=== PATIENT | female | born 1940 | race Caucasian/White ===

== ENCOUNTER → 2017-08-14 | Outpatient (CLI) | payer MEDICARE, BC ==
[2017-08-14 10:28] LABS: MCH 30.7 pg (25.0-35.0); MCHC 32.7 g/dL (31.0-37.0); MCV 94.1 fL (80.0-100.0); Mean Platelet Volume 7.8; Platelet Count 192 k/uL (150-450); RBC 4.25 m/uL (3.80-5.40); WBC 4.7 k/uL (3.8-10.6)
[2017-08-14 10:40] LABS: Appearance,Urine Clear (Clear); Bilirubin,Urine Negative (Negative); Blood,Urine Negative (Negative); Color,Urine Yellow; Glucose,Urine (UA) Negative (Negative); Ketones,Urine Negative (Negative); Leukocyte Esterase,Urine Negative (Negative); Nitrite,Urine Negative (Negative); PH, Urine 5.5 (5.0-8.0); Protein,Urine Negative (Negative); Specific Gravity,Urine 1.011 (1.001-1.035); Urobilinogen,Urine <2.0 mg/dL (<2.0)
[2017-08-14 10:45] LABS: ALT 22 U/L (9-52); AST 21 U/L (14-36); Albumin 3.9 g/dL (3.5-5.0); Alkaline Phosphatase 67 U/L (38-126); Anion Gap 9 mmol/L; Blood Urea Nitrogen 16 mg/dL (7-17); Calcium 9.6 mg/dL (8.4-10.2); Carbon Dioxide 27 mmol/L (22-30); Chloride 107 mmol/L (98-107); Glucose 100 mg/dL (74-99); Potassium 4.4 mmol/L (3.5-5.1); Sodium 143 mmol/L (137-145); Total Bilirubin 0.4 mg/dL (0.2-1.3); Total Protein 6.5 g/dL (6.3-8.2)
[2017-08-14 10:54] LABS: INR 1.1 (<1.2); Partial Thromboplastin Time 22.8 sec (22.0-30.0); Prothrombin Time 10.6 sec (9.0-12.0)
== END | disposition home or self-care (01) ==
LOC: LABPAT 09:35
PROVIDERS: ATTEND Orthopaedic Surgery
DX: Z01.818 Encounter for other preprocedural examination (principal); Z01.812 Encounter for preprocedural laboratory examination
CPT/HCPCS: 80053; 81003; 85027; 85610; 85730; 87070; 93005

== ENCOUNTER 2017-08-27 09:55 | Inpatient (IN) | payer MEDICARE, BC ==
[2017-08-19 15:25] VITALS: BMI 34.7
[~2017-08-27 09:55] MED LIST: ACETAMINOPHEN TAB 500 MG TAB PO ONE; DEXAMETHASONE SOD PHOSPHATE 10 MG/ML 1 ML VIAL IV ONE; LIDOCAINE 1% 20 ML VIAL (10MG/ML) FOR IV START INTRADERMA PRN; MELOXICAM 7.5 MG TAB PO ONE; MIDAZOLAM 2 MG/2 ML VIAL IV PRN; MORPHINE SULFATE 2 MG/ML SYRINGE IV PRN; ONDANSETRON 4 MG/2 ML VIAL IVP ONE; ROPIVACAINE 246.25 MG, EPINEPHrine 0.5 MG, KETOROLAC 30 MG, cloNIDine HCL/PF 80 MCG, WA... MISCELLANE ONE; SCOPOLAMINE 1.5MG/72HR PATCH TRANSDERM ONE; TRANEXAMIC ACID 1,000 MG in SODIUM CHLORIDE 0.9% 50 ML IVPB ONE; ceFAZolin IN SWFI 2 GM/20 ML SYRINGE IVP ONE
[2017-08-27] MEDS: LACTATED RINGERS 1,000 ML IV SCH (14:26)
[2017-08-27] MEDS ORDERED: ROPIVACAINE 5 MG/ML 30 ML VIAL ONE (14:54)
[2017-08-27] MEDS ORDERED: fentaNYL (PF) 50 MCG/ML 2 ML AMP ONE (14:54)
[2017-08-27] MEDS ORDERED: PROPOFOL 10 MG/ML 20 ML VIAL IV ONE (14:54)
[2017-08-27] MEDS ORDERED: PHENYLEPHRINE-0.9% NACL SYG 1 MG/10 ML SYRINGE ONE (14:54)
[2017-08-27] MEDS ORDERED: SUCCINYLCHOLINE CHLORIDE 100 MG/5 ML SYR IV ONE (14:54)
[2017-08-27] MEDS ORDERED: TRANEXAMIC ACID 1,000 MG/10 ML VIAL ONE (14:54)
[2017-08-27] MEDS ORDERED: ceFAZolin 3,000 MG in SODIUM CHLORIDE 0.9% IRRIGATIO 3,000 ML IRRIGATION ONE (14:54)
[2017-08-27] MEDS ORDERED: ePHEDrine SULFATE/0.9% NACL/PF 50 MG/5 ML SYRINGE IV ONE (14:54)
[2017-08-27] MEDS ORDERED: LIDOCAINE 1% INJ 10MG/ML (20 ML MDV) ONE (14:54)
[2017-08-27] MEDS ORDERED: SODIUM CHLORIDE 0.9% 100 ML BAG ONE (14:54)
[2017-08-27] MEDS ORDERED: LIDOCAINE 2%-EPI 1:100,000 20 ML VIAL ONE (14:54)
--- NOTE | 2017-08-27 15:15 | P.ONQ ---
Anesthesiology Proc Note - PNB - Peripheral Nerve Block Performed Right Interscalene Indication: Acute Post-Operative Pain, Requested by physician (Dr Rex Oconnell ) Preparation: Sterile Prep Position: Supine Catheter: None Needle Types: Other (see comment) (Wagner) Needle Size: 50mm (2") Needle Gauge: 20, 21 Technique: Ultrasound (0.5% Ropivacaine 12cc, 2.0% Lidocaine 12cc with 1:100, 000 epi) Blood Aspirated: No Pain Paresthesia on Injection Noted: No Resistance on Injection: Normal Events: Uneventful and Well Tolerated
[2017-08-27] MEDS ORDERED: LACTATED RINGERS 1,000 ML IV ONE (16:22)
--- NOTE | 2017-08-27 16:22 | P.OP ---
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 Biomet comprehensive reverse shoulder system, humeral bearing, 44 mm x 36 mm, +3 Biomet comprehensive reverse shoulder system, humeral tray with locking ring, 44 mm, standard Biomet comprehensive reverse shoulder, Glenosphere baseplate, 25 mm Biomet comprehensive reverse shoulder, central screw, 6.5 mm x 20 mm Biomet comprehensive reverse shoulder, fixed locking screw, 4.75 x 25 mm, 15 mm , 15 mm, 25 mm. Biomet comprehensive reverse shoulder glenosphere, 36 mm, standard All components were press-fit. Articulation is metal on polyethylene. Anesthesia: EDGAR Surgeon: Rex Oconnell Java Mobile Developer #1: Kamilah Burkett Estimated Blood Loss (ml): 50 Pathology: other (Bone and cartilage) Condition: stable Disposition: PACU Indications for Procedure: This is a patient that presented to my office with severe pain in the shoulder. X-rays demonstrated severe osteoarthritis of the glenohumeral joint of her shoulder. After failure of conservative treatment, we discussed the surgical and nonsurgical treatment options at length. The patient wishes to proceed with a reverse total shoulder arthroplasty. Patient is aware of the complications of the procedure which include but are not limited to infection, hardware failure, persistent pain, dislocation, and nerve injury. Informed consent was obtained. Operative Findings: The operative findings are consistent with severe osteoarthritis the right shoulder with a chronic rotator cuff tear Description of Procedure: The patient was seen in the preoperative area, consent was reviewed, and operative site was marked with a skin marker. Patient was then brought to the operating room and given preoperative antibiotics intravenously. Patient was also given 1 g of Tranexamic acid intravenously. A general anesthetic was administered by the anesthesia department. The patient was then placed in a beachchair position with the bony prominences well-padded and the head secured. The shoulder was then prepped and draped in the usual sterile fashion. A universal timeout was then performed, which confirmed the patient's name, surgical site, ALLERGIES, and consent. A standard deltopectoral approach was performed. The skin and subcutaneous tissue was sharply dissected down to the deltoid fascia. The cephalic vein was then identified and retracted medially. The deltopectoral interval was then utilized to expose the subscapularis tendon. A retractor was then placed under the coracobrachialis tendon retracted medially, and the deltoid. The axillary nerve is palpated and protected throughout the procedure. The subscapularis tendon was then released and retracted medially. The humeral head was then exposed easily. The rotator cuff tendon was found to be completely torn and retracted. After the humeral head was exposed, osteophytes were removed with a Ronguer. Next the humeral stem was prepared. A starter reamer was then placed through the humeral head along the axis of the humeral shaft just lateral to the articular surface and just medial to the rotator cuff attachment. Sequential reaming was performed to the appropriate size reamer was inserted to the # between the 3 and 4 on the reamer. Next the intramedullary resection guide was placed on the reamer shaft. It was placed to the appropriate resection depth and angle of 30 of retroversion. Resection guide block was then secured with Steinmann pins. The proximal humerus was then resected. The block was then removed and the humerus was then broached sequentially to the same size as the reamer. After the broaches fully seated, the broach handle was removed and a broach cover was placed protect the humerus while the glenoid was prepared. Next attention was directed to the glenoid. The appropriate retractors were placed around the glenoid and any remaining soft tissues was removed from around the glenoid. After the glenoid was adequately exposed, the threaded glenoid guide was placed onto the glenoid and a 3.2 mm Steinmann pin was inserted in the glenoid at the desired angle and position, ensuring the pin engaged medial cortical wall. Next, the cannulated baseplate reamer was placed over the top of the Steinmann pin. The glenoid was then reamed to the appropriate depth. The glenoid reamer was then removed, leaving the Steinmann pin. The glenoid Syed plate implant was placed on the end of the cannulated baseplate impactor. The baseplate was then impacted fully into the glenoid. Next the 6.5 mm central screw was then placed which afforded excellent fixation. The 4 peripheral locking screws were then drilled measured and placed. Next the appropriate glenosphere was opened and impacted into the glenoid baseplate. Attention was then redirected to the humerus. Next a trial humeral tray was placed in the shoulder was reduced. Shoulder was taken through a full range of motion and found to be stable. The shoulder was then gently dislocated, and the trial humerus and humeral tray were removed. The final humeral stem was impacted in the final humeral tray was impacted as well. Shoulder was then relocated. Again the shoulder was taken through a range of motion and found to have no instability. Shoulder was then irrigated with pulsatile lavage. The shoulder was then irrigated with Irrisept solution. The soft tissues were then injected with a ropivacaine solution, which consisted of 246.25 mg of ropivacaine, 0.5 mg of epinephrine, 30 mg of Toradol, 80 g of clonidine, and 48.45 mL of sterile water , for a total of 100 mL of fluid injected. A second dose of 1 g of Tranexamic acid was given. The subscapularis was then repaired with #1 Vicryl. The deltopectoral interval was then closed with #1 Vicryl as well. The subcutaneous tissues were closed with 2-0 Vicryl then Dermabond was placed on the skin. A sterile dressing was then applied, the patient was transported to the recovery room in an arm sling in stable condition. The assistant boiler operator LUANN Ball was required due the complexity of surgery and the need for a skilled operating room surgical technologist.
[2017-08-27] MEDS ORDERED: HYDROcodone/APAP 5-325MG 1 EACH TAB PO PRN (16:35)
[2017-08-27] MEDS ORDERED: hydrOXYzine PAMOATE 25 MG CAP PO PRN (16:35)
[2017-08-27] MEDS ORDERED: MORPHINE SULFATE/PF 10MG/10ML VL IVP PRN ×3 (16:35)
[2017-08-27] MEDS ORDERED: ONDANSETRON 4 MG/2 ML VIAL IVP PRN (16:35)
[2017-08-27] MEDS ORDERED: SENNOSIDES-DOCUSATE SODIUM 1 EACH TAB PO PRN (16:35)
--- NOTE | 2017-08-27 17:08 | XR ---
EXAMINATION TYPE: XR shoulder limited RT DATE OF EXAM: 08/27/2017 COMPARISON: NONE HISTORY: Postop right shoulder surgery TECHNIQUE: Single view FINDINGS: There is a right shoulder prosthesis. Components appear in anatomic position. IMPRESSION: Right shoulder prosthesis. No complicating process seen.
[2017-08-27] MEDS ORDERED: ONDANSETRON 4 MG/2 ML VIAL IVP ONE (17:09)
[2017-08-27] MEDS: SODIUM CHLORIDE 0.9% 1,000 ML IV SCH (19:09)
[2017-08-28] MEDS: ceFAZolin IN SWFI 2 GM/20 ML SYRINGE IVP SCH ×2 (01:11→08:06)
[2017-08-28 01:26] VITALS: RESP 16
[2017-08-28] MEDS: LACTATED RINGERS 1,000 ML IV SCH (05:25)
[2017-08-28 07:32] VITALS: BP 140/74; PULSE 109; TEMP 98.3
[2017-08-28] MEDS: HYDROcodone/APAP 5-325MG 1 EACH TAB PO PRN ×2 (07:40→14:52)
--- NOTE | 2017-08-28 09:15 | P.DS ---
Providers Date of admission: 08/27/17 13:56 Expected date of discharge: 08/28/17 Attending physician: Rex Oconnell Consults: 08/27/17 16:35 Consult Physician Routine Consulting Provider: Sheeba Mary Consult Reason/Comments: medical management Do you want consulting provider notified?: Yes Primary care physician: Beth Hook - Discharge Diagnosis(es) (1) Primary osteoarthritis, right shoulder Current Visit: Yes Status: Acute (2) S/p reverse total shoulder arthroplasty Current Visit: Yes Status: Acute Hospital Course: This is a 77-year-old female with known history of degenerative arthritis of the right shoulder and chronic rotator cuff tear. The patient presents for evaluation. After discussion and consideration patient elects to proceed with reverse total shoulder arthroplasty. The patient is seen preoperatively by Dr. Oconnell and medically cleared for surgery by their primary care physician. Patient is admitted to [facility] on 08/27/2017 for reverse total shoulder arthroplasty. The procedures performed without complication or sequelae. The patient is doing well postoperatively. Labs and vital signs are stable on day of discharge. On day of discharge patient's shoulder incision is healing well. There is minimal erythema. There is no drainage noted at this time. There is minimal soft tissue swelling to the shoulder. Patient has full hand and wrist motion without difficulty or pain. Sensation intact, there is some diminished sensation to the 4th and 5th digits reported by the patient. Patient can still sense light touch and pressure in the 4th and 5th digits. Neurovascular status to the right upper extremity is intact. Patient is discharged home in good condition. Please see med rec for accurate list of home medications. Plan - Discharge Summary Discharge Rx Participant: Yes New Discharge Prescriptions: New HYDROcodone/APAP 5-325MG [[place] 5-325] 1 - 2 tab PO Q4-6H PRN #90 tab PRN Reason: Pain Sennosides [Senokot] 1 tab PO BID #60 tablet No Action Simvastatin [Zocor] 40 mg PO AC-LUNCH Multivitamins, Thera [Multivitamin (formulary)] 1 tab PO DAILY Donepezil [Aricept] 10 mg PO HS Omeprazole [PriLOSEC] 20 mg PO AC-BRKFST Nitroglycerin Sl Tabs [Nitrostat] 0.4 mg SUBLINGUAL Q5M PRN PRN Reason: Chest Pain Aspirin [Adult Low Dose Aspirin EC] 81 mg PO BID Glucosamine Sulfate 500 mg PO DAILY Stool Softner 2 tab PO BID Meloxicam [Mobic] 7.5 mg PO BID Oxybutynin Chloride [Ditropan] 5 mg PO BID Losartan Potassium 50 mg PO DAILY Atenolol [Tenormin] 25 mg PO HS Calcium Carbonate/Vitamin D3 [Calcium 600-Vit D3 200 Tablet] 1 tab PO DAILY Discharge Medication List Donepezil [Aricept] 10 mg PO HS 03/01/14 [History] Multivitamins, Thera [Multivitamin (formulary)] 1 tab PO DAILY 03/01/14 [History ] Omeprazole [PriLOSEC] 20 mg PO AC-BRKFST 03/01/14 [History] Simvastatin [Zocor] 40 mg PO AC-LUNCH 03/01/14 [History] Aspirin [Adult Low Dose Aspirin EC] 81 mg PO BID 08/19/17 [History] Nitroglycerin Sl Tabs [Nitrostat] 0.4 mg SUBLINGUAL Q5M PRN 08/19/17 [History] Atenolol [Tenormin] 25 mg PO HS 08/21/17 [History] Glucosamine Sulfate 500 mg PO DAILY 08/21/17 [History] Losartan Potassium 50 mg PO DAILY 08/21/17 [History] Meloxicam [Mobic] 7.5 mg PO BID 08/21/17 [History] Oxybutynin Chloride [Ditropan] 5 mg PO BID 08/21/17 [History] Stool Softner 2 tab PO BID 08/21/17 [History] Calcium Carbonate/Vitamin D3 [Calcium 600-Vit D3 200 Tablet] 1 tab PO DAILY [History] HYDROcodone/APAP 5-325MG [[place] 5-325] 1 - 2 tab PO Q4-6H PRN #90 tab 08/28/17 [ Rx] Sennosides [Senokot] 1 tab PO BID #60 tablet 08/28/17 [Rx] Follow up Appointment(s)/Referral(s): Rex Oconnell DO [Doctor of Osteopathic Medicine] - 2 Weeks Activity/Diet/Wound Care/Special Instructions: Leave dressing in place for 10-14 days. May shower with dressing on. Range of motion as tolerated to the right upper extremity. Maintain sling for comfort. Please take right arm out of sling several times throughout the day to work on range of motion of the elbow. Please follow-up with [facility] in 2 weeks. Please call with any questions or concerns, [phone]. Discharge Disposition: HOME WITH HOME HEALTH SERVICES
[2017-08-28] MEDS: SODIUM CHLORIDE 0.9% 1,000 ML IV SCH (09:20)
[2017-08-28] MEDS ORDERED: HYDROmorphone 2 MG TAB PO PRN ×3 (13:28→13:29)
--- NOTE | 2017-08-28 14:34 | P.CONS ---
History of Present Illness - Reason for Consult Medical clearance for discharge - History of Present Illness Patient's x-ray underwent right shoulder arthroplasty elective. Does have history of hypertension. Her pain is well-controlled no overnight events. Patient does have history of hypertension gases patient reflux disease patient the denied any symptoms of chest pain nausea vomiting. Patient is clinically stable no significant abnormal physical exam findings patient is okay to be discharged from medical perspective does not have any labs available patient is bit anxious to go home because of which she is bit tachycardic Review of Systems REVIEW OF SYSTEMS: CONSTITUTIONAL: No fever, no malaise, no fatigue. HEENT: No recent visual problems or hearing problems. Denied any sore throat. CARDIOVASCULAR: No chest pain, orthopnea, PND, no palpitations, no syncope. PULMONARY: No shortness of breath, no cough, no hemoptysis. GASTROINTESTINAL: No diarrhea, no nausea, no vomiting, no abdominal pain. Normoactive bowel sounds. NEUROLOGICAL: No headaches, no weakness, no numbness. HEMATOLOGICAL: Denies any bleeding or petechiae. GENITOURINARY: Denies any burning micturition, frequency, or urgency. MUSCULOSKELETAL/RHEUMATOLOGICAL: Denies any joint pain, swelling, or any muscle pain. ENDOCRINE: Denies any polyuria or polydipsia. The rest of the 14-point review of systems is negative. Past Medical History Past Medical History: Cancer, Chest Pain / Angina, Dementia, GERD/Reflux, Hyperlipidemia, Osteoarthritis (OA) Additional Past Medical History / Comment(s): hx. uterine cancer History of Any Multi-Drug Resistant Organisms: None Reported Past Surgical History: Hysterectomy, Joint Replacement, Orthopedic Surgery Additional Past Surgical History / Comment(s): left and right knee replaced, cataract surg., bunion surg. Past Anesthesia/Blood Transfusion Reactions: No Reported Reaction Past Psychological History: Anxiety Smoking Status: Never smoker Past Alcohol Use History: None Reported Past Drug Use History: None Reported - Past Family History Father Family Medical History: Cancer Additional Family Medical History / Comment(s): brain cancer Mother Family Medical History: Cancer Additional Family Medical History / Comment(s): colon cancer Brother(s) Family Medical History: Cancer Additional Family Medical History / Comment(s): breast cancer Medications and Allergies Home Medications Medication Instructions Recorded Confirmed Type Donepezil [Aricept] 10 mg PO HS 03/01/14 08/27/17 History Multivitamins, Thera [Multivitamin 1 tab PO DAILY 03/01/14 08/27/17 History (formulary)] Omeprazole [PriLOSEC] 20 mg PO AC-BRKFST 03/01/14 08/27/17 History Simvastatin [Zocor] 40 mg PO AC-LUNCH 03/01/14 08/27/17 History Aspirin [Adult Low Dose Aspirin EC] 81 mg PO BID 08/19/17 08/27/17 History Nitroglycerin Sl Tabs [Nitrostat] 0.4 mg SUBLINGUAL Q5M PRN 08/19/17 08/27/17 History Atenolol [Tenormin] 25 mg PO HS 08/21/17 08/27/17 History Glucosamine Sulfate 500 mg PO DAILY 08/21/17 08/27/17 History Losartan Potassium 50 mg PO DAILY 08/21/17 08/27/17 History Meloxicam [Mobic] 7.5 mg PO BID 08/21/17 08/27/17 History Oxybutynin Chloride [Ditropan] 5 mg PO BID 08/21/17 08/27/17 History Stool Softner 2 tab PO BID 08/21/17 08/27/17 History Calcium Carbonate/Vitamin D3 1 tab PO DAILY 08/23/17 08/27/17 History [Calcium 600-Vit D3 200 Tablet] HYDROcodone/APAP 5-325MG [[place] 1 - 2 tab PO Q4-6H PRN #90 tab 08/28/17 Rx 5-325] Sennosides [Senokot] 1 tab PO BID #60 tablet 08/28/17 Rx Allergies Allergy/AdvReac Type Severity Reaction Status Date / Time No Known Allergies Allergy Verified 08/27/17 17:16 Physical Exam Vitals: Vital Signs Temp Pulse Resp BP Pulse Ox 08/28/17 07:25 98.3 F 109 H 16 140/74 95 08/28/17 00:07 97.3 F L 105 H 16 143/79 94 L 08/28/17 00:00 18 08/27/17 21:00 18 08/27/17 20:00 98.6 F 90 18 130/75 93 L 08/27/17 19:45 95 124/78 08/27/17 19:30 100 139/87 03/27/18 19:15 84 119/73 08/27/17 19:00 87 110/68 08/27/17 18:45 85 110/68 08/27/17 18:30 84 129/68 08/27/17 18:15 77 133/77 08/27/17 18:00 97.4 F L 92 18 119/74 93 L 08/27/17 17:30 97 18 139/81 99 08/27/17 17:00 83 16 134/62 94 L 08/27/17 16:45 91 16 160/71 93 L 08/27/17 16:35 97.7 F 103 H 16 172/92 97 Intake and Output 08/27/17 08/28/17 08/28/17 22:59 06:59 14:59 Intake Total 50 660 520 Output Total 20 Balance 30 660 520 Intake: IV 50 Intake, IV Titration 400 520 Amount Sodium Chloride 0.9% 1, 400 520 000 ml @ 65 mls/hr IV . [id number] [facility] Rx#:[id number] Oral 260 Output: Estimated Blood Loss 20 Other: Voiding Method Toilet Toilet Toilet # Voids 1 2 Weight 86.183 kg PHYSICAL EXAMINATION: GENERAL: The patient is alert and oriented x3, not in any acute distress. Well developed, well nourished. HEENT: Pupils are round and equally reacting to light. EOMI. No scleral icterus. No conjunctival pallor. Normocephalic, atraumatic. No pharyngeal erythema. No thyromegaly. CARDIOVASCULAR: S1 and S2 present. No murmurs, rubs, or gallops. PULMONARY: Chest is clear to auscultation, no wheezing or crackles. ABDOMEN: Soft, nontender, nondistended, normoactive bowel sounds. No palpable organomegaly. MUSCULOSKELETAL: No joint swelling or deformity. EXTREMITIES: No cyanosis, clubbing, or pedal edema. NEUROLOGICAL: Gross neurological examination did not reveal any focal deficits. SKIN: No rashes. Assessment and Plan Plan: -Postoperative day one right shoulder arthroplasty: Pain management and DVT prophylaxis per primary service. -Hypertension -Gastric esophageal reflux disease -Mild dementia etiology is unknown No further recommendations from his perspective patient can resume all her home medications without any changes and okay to discharge from medicine perspective
== END 2017-08-28 15:30 | disposition home health service (06) | DRG 483 ==
LOC: 2ORMAIN 13:56 → 3SUR 17:26
PROVIDERS: ADMIT Orthopaedic Surgery; ATTEND Orthopaedic Surgery
PROC: 0RRJ00Z Replacement of Right Shoulder Joint with Reverse Ball and Socket Synthetic Substitute, Open Approach (ICD-10-PCS; principal; 2017-08-27 16:20)
DX: M19.011 Primary osteoarthritis, right shoulder (principal); F03.90 Unspecified dementia, unspecified severity, without behavioral disturbance, psychotic disturbance, mood disturbance, and anxiety; E78.5 Hyperlipidemia, unspecified; I10 Essential (primary) hypertension; Z96.653 Presence of artificial knee joint, bilateral; K21.9 Gastro-esophageal reflux disease without esophagitis; M75.101 Unspecified rotator cuff tear or rupture of right shoulder, not specified as traumatic; Z85.42 Personal history of malignant neoplasm of other parts of uterus; Z79.82 Long term (current) use of aspirin; Z79.1 Long term (current) use of non-steroidal anti-inflammatories (NSAID); Z79.899 Other long term (current) drug therapy; Z82.49 Family history of ischemic heart disease and other diseases of the circulatory system; Z80.0 Family history of malignant neoplasm of digestive organs; Z80.3 Family history of malignant neoplasm of breast; Z80.8 Family history of malignant neoplasm of other organs or systems; Z90.710 Acquired absence of both cervix and uterus
CPT/HCPCS: 88305; 88311

== ENCOUNTER 2018-06-02 22:52 | Observation (INO) | payer MEDICARE, BC ==
--- NOTE | 2018-06-03 00:41 | ED ---
Chest Pain HPI - General Chief Complaint: Chest Pain Stated Complaint: chest pain Time Seen by Provider: 06/02/18 22:52 Source: patient, RN/MD, EMS, RN notes reviewed, old records reviewed Mode of arrival: EMS - History of Present Illness Initial Comments: This is a 77-year-old female who was transferred from [facility] for evaluation of chest pain in his been persistent today. She had midsternal chest pain or radiated to her left shoulder and into her back and left side. This started around 5 PM this after her noon. She apparently initially thought she was feeling anxious and the pain got worse she rated 9 out of 10. It improves to 7 out of 10 with oxygen. She did have associated shortness of breath with it some dizziness this is unlike any previous episode she's had. Is a family history of heart disease she is a nonsmoker. No nausea vomiting. She did take 2 subungual nitroglycerin at home and report is a prescription is old. She also took baby aspirin today. She was evaluated in the emergency department at [facility] she is found have a mildly elevated d-dimer CAT scan was negative for PE. Her initial troponin was negative at she had persistent pain and does require inpatient monitoring. She was transferred here for further evaluation. MD Complaint: chest pain - Related Data Home Medications Medication Instructions Recorded Confirmed Donepezil [Aricept] 10 mg PO HS 03/01/14 06/02/18 Multivitamins, Thera [Multivitamin 1 tab PO DAILY 03/01/14 06/02/18 (formulary)] Omeprazole [PriLOSEC] 20 mg PO AC-BRKFST 03/01/14 06/02/18 Simvastatin [Zocor] 40 mg PO AC-LUNCH 03/01/14 06/02/18 Aspirin [Adult Low Dose Aspirin EC] 81 mg PO BID 08/19/17 06/02/18 Nitroglycerin Sl Tabs [Nitrostat] 0.4 mg SUBLINGUAL Q5M PRN 08/19/17 06/02/18 Atenolol [Tenormin] 25 mg PO HS 08/21/17 06/02/18 Glucosamine Sulfate 500 mg PO DAILY 08/21/17 06/02/18 Meloxicam [Mobic] 7.5 mg PO BID 08/21/17 06/02/18 Calcium Carbonate/Vitamin D3 1 tab PO DAILY 08/23/17 06/02/18 [Calcium 600-Vit D3 200 Tablet] Allergies Allergy/AdvReac Type Severity Reaction Status Date / Time No Known Allergies Allergy Verified 06/02/18 23:26 Review of Systems ROS Statement: Those systems with pertinent positive or pertinent negative responses have been documented in the HPI. ROS Other: All systems not noted in ROS Statement are negative. EKG Findings - EKG Results: EKG: interpreted by FATIMAH, sinus rhythm (Sinus rhythm of 84. Interval 146 QRS duration 94 QT since QTC/[address] configuration this is compared with a [facility] EKG dated 08/14/17 and 2 EKG submitted from [place]. The repeat at this emergency department shows less prominent ST change.) Past Medical History Past Medical History: Cancer, Chest Pain / Angina, Dementia, GERD/Reflux, Hyperlipidemia, Osteoarthritis (OA) Additional Past Medical History / Comment(s): hx. uterine cancer History of Any Multi-Drug Resistant Organisms: None Reported Past Surgical History: Hysterectomy, Joint Replacement, Orthopedic Surgery Additional Past Surgical History / Comment(s): left and right knee replaced, cataract surg., bunion surg. Past Anesthesia/Blood Transfusion Reactions: No Reported Reaction Past Psychological History: Anxiety Smoking Status: Never smoker Past Alcohol Use History: None Reported Past Drug Use History: None Reported - Past Family History Mother Family Medical History: Cancer Additional Family Medical History / Comment(s): COLON CA Brother(s) Family Medical History: Cancer Additional Family Medical History / Comment(s): PANCREATIC CANCER Father Family Medical History: Cancer Additional Family Medical History / Comment(s): brain cancer General Exam - General Exam Comments Initial Comments: This is a well-developed well-nourished awake alert oriented 3 female General appearance: alert, in no apparent distress Head exam: Present: atraumatic, normocephalic, normal inspection Eye exam: Present: normal appearance, PERRL, EOMI. Absent: scleral icterus, conjunctival injection, periorbital swelling ENT exam: Present: normal exam, mucous membranes moist Neck exam: Present: normal inspection. Absent: tenderness, meningismus, lymphadenopathy Respiratory exam: Present: normal lung sounds bilaterally. Absent: respiratory distress, wheezes, rales, rhonchi, stridor Cardiovascular Exam: Present: regular rate, normal rhythm, normal heart sounds. Absent: systolic murmur, diastolic murmur, rubs, gallop, clicks GI/Abdominal exam: Present: soft, normal bowel sounds. Absent: distended, tenderness, guarding, rebound, rigid Extremities exam: Present: normal inspection, full ROM, normal capillary refill. Absent: tenderness, pedal edema, joint swelling, calf tenderness Back exam: Present: normal inspection Neurological exam: Present: alert, oriented X3, CN II-XII intact Psychiatric exam: Present: normal affect, normal mood Skin exam: Present: warm, dry, intact, normal color. Absent: rash Course Vital Signs 06/02/18 06/02/18 22:58 23:42 Temperature 98.6 F Pulse Rate 86 Respiratory 16 18 Rate Blood Pressure 126/75 O2 Sat by Pulse 96 Oximetry - Reevaluation(s) Reevaluation #1: 06/03/18 00:41 I was called back into the room by family shortly after my initial evaluation they stated she had a "spell" where she became somewhat incoherent briefly this lasted for a brief period time she is back to normal. No arrhythmias noted at that time. She denies any other complaints at this moment. Chest Pain MDM - MDM I did review the charting materials from [facility]. I did discuss the findings with the patient family members. Patient be admitted to Dr. Barrett's service. Radiology will be consulted. Patient is a continue with Nitropaste and heparin. Disposition Clinical Impression: Unstable angina pectoris, Chest pain Disposition: ADMITTED IP TO THIS HOSP Condition: Stable Referrals: Beth Hook MD [Primary Care Provider] - 1-2 days
[2018-06-03 00:54] LABS: Creatine Kinase 71 U/L (30-135)
[2018-06-03] MEDS ORDERED: NITROGLYCERIN SL TABS 0.4 MG TAB SUBLINGUAL PRN (01:02)
[2018-06-03 01:08] LABS: Creatine Kinase MB 0.8 ng/mL (0.0-2.4); Troponin I <0.012 ng/mL (0.000-0.034)
[2018-06-03] MEDS ORDERED: HEPARIN SOD,PORK IN 0.45% NACL 25,000 UNIT in 0.45% NACL 1 250ML.BAG IV SCH (01:15)
[2018-06-03] MEDS ORDERED: HEPARIN SODIUM,PORCINE 5,000 UNIT/ML 1 ML VIAL IV PRN (01:29)
[2018-06-03] MEDS: NITROGLYCERIN OINT 1 INCH/GM PACKET TOPICAL SCH ×2 (05:34→11:30)
[2018-06-03 07:58] LABS: Creatine Kinase 83 U/L (30-135)
[2018-06-03 08:08] LABS: Creatine Kinase MB 0.8 ng/mL (0.0-2.4); Troponin I <0.012 ng/mL (0.000-0.034)
[2018-06-03] MEDS ORDERED: NON-FORMULARY DRUG (Glucosamine Sulfate 500 MG) PO SCH (09:00)
[2018-06-03] MEDS: PANTOPRAZOLE 40 MG TABLET PO SCH (09:05)
[2018-06-03] MEDS: CALCIUM CARB-VIT D 500MG-200UN 1 EACH TAB PO SCH (09:05)
[2018-06-03] MEDS: MELOXICAM 7.5 MG TAB PO SCH (09:08)
[2018-06-03 11:04] LABS: Creatine Kinase 72 U/L (30-135)
[2018-06-03 11:17] LABS: Creatine Kinase MB 0.7 ng/mL (0.0-2.4); Troponin I <0.012 ng/mL (0.000-0.034)
[2018-06-03] MEDS: ATORVASTATIN 20 MG TAB PO SCH (11:30)
[2018-06-03] MEDS: MULTIVITAMINS, THERA 1 EACH TAB PO SCH (11:31)
--- NOTE | 2018-06-03 12:26 | P.CRDCN ---
History of Present Illness Consult reason: chest pain History of present illness: This is Dr. Camarillo dictating a consult on this patient The patient was interviewed and examined by me IMPRESSION / ASSESSMENT: Chest discomfort radiating up to the neck with normal cardiac enzymes Back discomfort No abdominal discomfort No evidence for pulmonary embolism and no evidence for any aortic dissection or acute pathology based upon CT report from [facility] PLAN: DC nitroglycerin DC heparin If she has chest discomfort then it will lead ECG stat, discussed with nurse and family 2-D echo and Doppler study tomorrow Dobutamine stress echo tomorrow HPI 71-year-old female transferred from [facility] for persistent chest discomfort midsternal radiating to the left shoulder into her back and left side Apparently at [facility] she had an elevated d-dimer, computed tomography scan negative for pulmonary embolism initial cardiac enzyme normal ROS: No fever chills or rigors, no cough, phlegm or expectoration, no nausea, vomiting or diarrhea, no hematuria, dysuria, no musculoskeletal complaints, no strokes or seizures, no skin lesions. EXAMINATION: On examination blood pressure 126/75 mmHg 103/67 mmHg pulse rate in the 60s to 80s, afebrile 97.6F Abdomen is soft nontender Extremities warm no edema Breath sounds are clear no rhonchi no crackles Heart sounds are soft and normal S1 normal S2 REVIEW OF LABS, ECG & MEDICAL DATA ECG shows sinus rhythm nonspecific ST segment abnormality possible 0.[address] depression V5 and V6 normal heart rates 84 beats a minute she normally takes simvastatin and aspirin atenolol at home Initial blood pressure 126/75 mmHg Here in the hospital 2 more cardiac enzymes are normal Past Medical History Past Medical History: Cancer, Chest Pain / Angina, Dementia, GERD/Reflux, Hyperlipidemia, Osteoarthritis (OA) Additional Past Medical History / Comment(s): hx. uterine cancer History of Any Multi-Drug Resistant Organisms: None Reported Past Surgical History: Hysterectomy, Joint Replacement, Orthopedic Surgery Additional Past Surgical History / Comment(s): left and right knee replaced, cataract surg., bunion surg. Past Anesthesia/Blood Transfusion Reactions: No Reported Reaction Past Psychological History: Anxiety Smoking Status: Never smoker Past Alcohol Use History: None Reported Past Drug Use History: None Reported - Past Family History Mother Family Medical History: Cancer Additional Family Medical History / Comment(s): COLON CA Brother(s) Family Medical History: Cancer Additional Family Medical History / Comment(s): PANCREATIC CANCER Father Family Medical History: Cancer Additional Family Medical History / Comment(s): brain cancer Medications and Allergies Home Medications Medication Instructions Recorded Confirmed Type Donepezil [Aricept] 10 mg PO HS 03/01/14 06/02/18 History Multivitamins, Thera [Multivitamin 1 tab PO DAILY 03/01/14 06/02/18 History (formulary)] Omeprazole [PriLOSEC] 20 mg PO AC-BRKFST 03/01/14 06/02/18 History Simvastatin [Zocor] 40 mg PO HS 03/01/14 06/03/18 History Aspirin [Adult Low Dose Aspirin EC] 81 mg PO BID 08/19/17 06/02/18 History Nitroglycerin Sl Tabs [Nitrostat] 0.4 mg SUBLINGUAL Q5M PRN 08/19/17 06/02/18 History Atenolol [Tenormin] 25 mg PO HS 08/21/17 06/02/18 History Glucosamine Sulfate 500 mg PO DAILY 08/21/17 06/02/18 History Meloxicam [Mobic] 7.5 mg PO BID 08/21/17 06/02/18 History Calcium Carbonate/Vitamin D3 1 tab PO DAILY 08/23/17 06/02/18 History [Calcium 600-Vit D3 200 Tablet] Allergies Allergy/AdvReac Type Severity Reaction Status Date / Time No Known Allergies Allergy Verified 06/02/18 23:26 Physical Exam Vitals: Vital Signs Temp Pulse Pulse Resp BP BP Pulse Ox 06/03/18 03:07 97.6 F 66 18 103/67 2 L 06/03/18 02:57 18 06/03/18 01:17 18 06/02/18 23:42 86 18 126/75 96 06/02/18 22:58 98.6 F 16 Intake and Output 06/02/18 06/03/18 06/03/18 22:59 06:59 14:59 Other: Voiding Method Toilet # Voids 2 Weight 87.09 kg Results Cardiac Enzymes 06/03/18 06/03/18 Range/Units 00:20 06:51 CK-MB (CK-2) 0.8 0.8 (0.0-2.4) ng/mL Troponin I <0.012 <0.012 (0.000-0.034) ng/mL Current Medications Generic Name Dose Route Start Last Admin Trade Name Freq PRN Reason Stop Dose Admin Aspirin 325 mg 06/04/18 09:00 Aspirin PO DAILY [facility] Atenolol 25 mg 06/03/18 21:00 Tenormin PO HS [facility] Atorvastatin Calcium 20 mg 06/03/18 12:30 Lipitor PO AC-LUNCH [facility] Calcium Carbonate 1 each 06/03/18 09:00 Oscal 500+D PO DAILY [facility] Donepezil HCl 10 mg 06/03/18 21:00 Aricept PO HS [facility] Heparin Sodium (Porcine) 0 unit 06/03/18 01:29 Heparin IV PER PROTOCOL PRN Low PTT Protocol Heparin Sodium/Sodium Chloride 250 mls @ 9.57 mls/hr 06/03/18 01:15 06/03/18 03:27 25,000 unit/ Sodium Chloride IV 11 units/kg/hr .Q24H ALESHA 9.57 mls/hr Administration Protocol 11 UNITS/KG/HR Meloxicam 7.5 mg 06/03/18 09:00 Mobic PO DAILY [facility] Multivitamins 1 each 06/03/18 12:00 Theragran PO DAILY@1200 [facility] Nitroglycerin 1 inch 06/03/18 06:00 06/03/18 05:34 Nitro-Bid Oint TOPICAL 1 inch Q6HR [facility] Administration Nitroglycerin 0.4 mg 06/03/18 01:02 Nitrostat SUBLINGUAL Q5M PRN Chest Pain Pantoprazole Sodium 40 mg 06/03/18 07:30 Protonix PO AC-BRKFST [facility] Intake and Output 06/02/18 06/03/18 06/03/18 22:59 06:59 14:59 Other: Voiding Method Toilet # Voids 2 Weight 87.09 kg
--- NOTE | 2018-06-03 14:31 | CT ---
EXAMINATION TYPE: CT brain wo con DATE OF EXAM: 06/03/2018 COMPARISON: None HISTORY: TIA CT DLP: 1101.4 mGycm Automated exposure control for dose reduction was used. FINDINGS: There is cerebral atrophy. There is no mass effect nor midline shift. There is no sign of intracrania l hemorrhage. Calvarium is intact. IMPRESSION: CEREBRAL ATROPHY. NO ACUTE INTRACRANIAL ABNORMALITY.
[2018-06-03] MEDS ORDERED: ALPRAZolam 0.25 MG TAB PO PRN (15:35)
[2018-06-03] MEDS ORDERED: ACETAMINOPHEN TAB 500 MG TAB PO PRN (15:35)
--- NOTE | 2018-06-03 16:25 | XR ---
EXAMINATION TYPE: XR chest 1V portable DATE OF EXAM: 06/03/2018 COMPARISON: 09/22/2015 HISTORY: Heart failure TECHNIQUE: Single frontal view of the chest is obtained. FINDINGS: There is no heart failure nor confluent pneumonic infiltrate. Costophrenic angles are wolf r. There are chest leads. IMPRESSION: No active cardiopulmonary disease. Normal heart. No change. Old left-sided rib fractures noted.
--- NOTE | 2018-06-03 16:38 | HP ---
HISTORY AND PHYSICAL DATE OF SERVICE: 06/03/2018 CHIEF COMPLAINT: Chest pain and difficulty speaking. HISTORY OF PRESENT ILLNESS: This 77-year-old woman with a past medical history of multiple medical problems including dementia, history of GERD, hypertension, DJD, hysterectomy, being followed by Dr. Hook in the outpatient setting presented to [facility] with complaints of chest pain. The pain is mild to moderate intensity, which was felt in the anterior part of the chest, radiating to the back and the patient also had an episode of confusion and difficulty speaking, which lasted for about 4 or 5 minutes according to the daughter at home. The patient is slightly slow to respond. Otherwise, there is no history of any focal deficits. Cardiology evaluation in progress. The D-dimer is slightly elevated at [facility] apparently. CTA was negative for pulmonary embolism. There is no history of fever, rigors. No headache, loss of consciousness, seizures. PAST MEDICAL HISTORY: History of dementia, GERD, hyperlipidemia, hysterectomy, DJD. MEDICATIONS: Prior to admission include: 1. Zocor 40 mg at bedtime. 2. Prilosec 20 mg daily. 4. Nitrostat 0.4 sublingual p.r.n. 5. Multivitamin. 6. Mobic 7.5 p.o. b.i.d. 7. Glucosamine 500 mg p.o. daily. 8. Aricept 10 mg q.h.s. 9. Vitamin D3 1 p.o. daily. 10.Tenormin 25 mg q.h.s. 11.Aspirin 81 mg. ALLERGIES: None. FAMILY HISTORY: History of colon cancer in the family. SOCIAL HISTORY: No history of smoking, no history of alcohol intake. REVIEW OF SYSTEMS: ENT: No diminished vision. No diminished hearing. CARDIOVASCULAR: No angina or palpitations. RESPIRATIONS: As mentioned earlier. GI no nausea or vomiting. : No dysuria. NERVOUS SYSTEM: As mentioned earlier. ALLERGY/IMMUNOLOGY: No asthma or hayfever. MUSCULOSKELETAL: As mentioned earlier. HEMATOLOGY/ONCOLOGY: No history of anemia. ENDOCRINE: No history of diabetes or hypothyroidism. CONSTITUTIONAL: As mentioned earlier. Dermatology: Negative. Rheumatology: Negative. Psychiatry: As mentioned earlier. PHYSICAL EXAMINATION: GENERAL: Alert, oriented x3. VITAL SIGNS: Pulse 74, blood pressure 135/82, respiration 18, temperature 97.8, pulse ox 92% on room air. HEENT is conjunctivae normal. Oral mucosa moist. NECK: No jugular venous distention. No carotid bruit. No lymph node enlargement. CARDIOVASCULAR SYSTEM: S1, S2 muffled. RESPIRATORY: Breath sounds diminished in the bases. No rhonchi. No crackles. ABDOMEN: Soft, nontender. No mass palpable. LEGS: No edema. No swelling. NERVOUS SYSTEM: Higher functions as mentioned earlier. Moves all 4 limbs. Mild diffuse weakness. No focal deficits noted. No cerebellar dysfunction. No nystagmus. Cranial nerves are normal. SKIN: No ulcer, rash or bleeding. JOINTS: No active deforming arthropathy. LABS: At this time shows an APTT 33.7. Troponin less than 0.012. The CT brain noted. The EKG showed nonspecific ST-T changes. No acute abnormality noted. CT brain showed cerebral atrophy. FINAL DIAGNOSES: 1. Chest pain, possible unstable angina. 2. Rule out transient ischemic attack. 3. History of dementia. 4. Gastroesophageal reflux disease. 5. Hyperlipidemia. 6. History of degenerative joint disease. 7. History uterine cancer. 8. History of anxiety. RECOMMENDATIONS AND DISCUSSION: In this woman who was admitted with multiple medical problems, we will monitor the patient closely, continue the current medications, management and symptomatic treatment. Otherwise, I would recommend close follow up with Cardiology to rule out myocardial infarction. Otherwise unstable angina protocol and I would also recommend possible stress test. Otherwise for the neurologic abnormalities I would get a neurology evaluation. Continue with antiplatelet agents as well as Lipitor. Full stroke workup including 2D echo and carotid Doppler. Guarded prognosis because of multiple complex medical issues. Further recommendations to follow Copy of dictation being forwarded to Dr. Hook, who is the primary physician. MMODL / IJN: [id number] / [facility]
[2018-06-03] MEDS: DONEPEZIL 10 MG TAB PO SCH (20:46)
[2018-06-03] MEDS: ATENOLOL 25 MG TAB PO SCH (20:46)
[2018-06-03] MEDS ORDERED: IPRATROPIUM-ALBUTEROL 3 ML NEB INHALATION PRN (21:30)
[2018-06-04 00:40] LABS: Appearance,Urine Clear (Clear); Bilirubin,Urine Negative (Negative); Blood,Urine Small (Negative); Color,Urine Yellow; Glucose,Urine (UA) Negative (Negative); Ketones,Urine Negative (Negative); Leukocyte Esterase,Urine Large (Negative); Mucus,Urine Rare /hpf; Nitrite,Urine Negative (Negative); Protein,Urine Negative (Negative); RBC,Urine <1 /hpf (0-5); Specific Gravity,Urine 1.012 (1.001-1.035); Squamous Epithelial Cell,Urine 1 /hpf (0-4); Urobilinogen,Urine <2.0 mg/dL (<2.0); WBC,Urine 16 /hpf (0-5)
[2018-06-04 06:06] LABS: Basophils % (A) 0 %; Eosinophils # (A) 0.1 k/uL (0-0.7); Eosinophils % (A) 3 %; HCT 40.1 % (34.0-46.0); HGB 13.2 gm/dL (11.4-16.0); Lymphocytes # (A) 1.1 k/uL (1.0-4.8); Lymphocytes % (A) 28 %; MCH 30.9 pg (25.0-35.0); MCHC 32.8 g/dL (31.0-37.0); MCV 94.1 fL (80.0-100.0); Mean Platelet Volume 7.6; Monocytes # (A) 0.2 k/uL (0-1.0); Monocytes % (A) 5 %; Neutrophils # (A) 2.6 k/uL (1.3-7.7); Neutrophils % (A) 62 %; Platelet Count 168 k/uL (150-450); RBC 4.26 m/uL (3.80-5.40); RDW 13.1 % (11.5-15.5); WBC 4.2 k/uL (3.8-10.6)
[2018-06-04 06:15] LABS: ALT 27 U/L (9-52); AST 22 U/L (14-36); Albumin 3.4 g/dL (3.5-5.0); Alkaline Phosphatase 67 U/L (38-126); Anion Gap 4 mmol/L; Blood Urea Nitrogen 17 mg/dL (7-17); Calcium 8.8 mg/dL (8.4-10.2); Carbon Dioxide 30 mmol/L (22-30); Chloride 108 mmol/L (98-107); Cholesterol 151 mg/dL (<200); Glucose 116 mg/dL (74-99); HDL Cholesterol 51 mg/dL (40-60); LDL Cholesterol,Calculated 73 mg/dL (0-99); Potassium 4.1 mmol/L (3.5-5.1); Sodium 142 mmol/L (137-145); Total Bilirubin 0.4 mg/dL (0.2-1.3); Triglycerides 133 mg/dL (<150)
--- NOTE | 2018-06-04 08:25 | US ---
EXAMINATION TYPE: US carotid duplex BILAT DATE OF EXAM: 06/04/2018 COMPARISON: NONE CLINICAL HISTORY: 77-year-old female stroke. TIA TECHNIQUE: Carotid duplex ultrasound examination. Indirect Doppler criteria was utilized. FINDINGS: EXAM MEASUREMENTS: RIGHT: Peak Systolic Velocity (PSV) cm/sec ----- Right CCA: 62.5 ----- Right ICA: 75.6 ----- Right ECA: 77.3 ICA/CCA ratio: 1.2 RIGHT: End Diastole cm/sec ----- Right CCA: 18.8 ----- Right ICA: 31.1 ----- Right ECA: 14.5 LEFT: Peak Systolic Velocity (PSV) cm/sec ----- Left CCA: 82.3 ----- Left ICA: 74.2 ----- Left ECA: 69.5 ICA/CCA ratio: 0.9 LEFT: End Diastole cm/sec ----- Left CCA: 29.1 ----- Left ICA: 35.1 ----- Left ECA: 10.4 VERTEBRALS (direction of flow): Right Vertebral: Antegrade Left Vertebral: Antegrade Rhythm: Normal [employer] Supervisor notes: Mild homogeneous plaque with no stenosis seen. IMPRESSION: No hemodynamically significant stenosis appreciated in either internal carotid artery. Criteria for Assigning % of Stenosis / Diameter reduction (Estimation based on the indirect measurements of the internal carotid artery velocities (ICA PSV). 1. Normal (no stenosis)=ICA PSV < 125 cm/s: ratio < 2.0: ICA EDV<40 cm/s. 2. Less than 50% stenosis=ICA PSV < 125 cm/s: ratio < 2.0: ICA EDV<40 cm/s. 3. 50 to 69% stenosis=ICA PSV of 125 to 230 cm/s: ration 2.0 ? 4.0: ICA EDV 40-100 cm/s. 4. Greater than 70% stenosis to near occlusion= ICA PSV > 230 cm/s: ratio > 4.0: ICA EDV > 100 cm/s. 5. Near occlusion= ICA PSV velocities may be low or undetectable: variable ratio and ICA EDV. 6. Total occlusion=unable to detect flow.
[2018-06-04] MEDS ORDERED: DOBUTamine DRIP for NUC MED 500 MG in DEXTROSE/WATER 1 250ML.BAG IV ONE (08:35)
[2018-06-04] MEDS ORDERED: ASPIRIN 325 MG TAB PO SCH (09:00)
--- NOTE | 2018-06-04 12:18 | ECHOF ---
Referral Reason:Stroke MEASUREMENTS -------- HEIGHT: 165.1 cm WEIGHT: 87.1 kg BP: 127/79 RVIDd: 2.7 cm (< 3.3) IVSd: 1.0 cm (0.6 - 1.1) LVIDd: 4.7 cm (3.9 - 5.3) LVPWd: 1.0 cm (0.6 - 1.1) IVSs: 1.3 cm LVIDs: 3.7 cm LVPWs: 1.2 cm LA Diam: 4.3 cm (2.7 - 3.8) LAESV Index (A-L): 30.07 ml/m Ao Diam: 3.3 cm (2.0 - 3.7) AV Cusp: 1.8 cm (1.5 - 2.6) MV EXCURSION: 18.742 mm (> 18.000) MV EF SLOPE: 89 mm/s (70 - 150) EPSS: 0.3 cm MV E Emmanuel: 0.72 m/s MV DecT: 143 ms MV A Emmanuel: 0.75 m/s MV E/A Ratio: 0.96 RAP: 5.00 mmHg RVSP: 31.53 mmHg FINDINGS -------- Sinus rhythm. This was a technically adequate study. The left ventricular size is normal. There is borderline concentric left ventricular hypertrophy. Overall left ventricular systolic function is normal with, an EF between 55 - 60 %. The right ventricle is normal in size. The left atrium is mildly dilated. LA is midly dilated 29-33ml/m2. The right atrial size is normal. The aortic valve is trileaflet, and appears structurally normal. No aortic stenosis or regurgitation. [id number] mitral regurgitation is present. Mild tricuspid regurgitation present. There is no evidence of pulmonary hypertension. The right v entricular systolic pressure, as measured by Doppler, is 31.53mmHg. Trace/mild (physiologic) pulmonic regurgitation. The aortic root size is normal. There is no pericardial effusion. CONCLUSIONS -------- 1. The left ventricular size is normal. 2. There is borderline concentric left ventricular hypertrophy. 3. Overall left ventricular systolic function is normal with, an EF between 55 - 60 %. 4. The right ventricle is normal in size. 5. The left atrium is mildly dilated. 6. LA is midly dilated 29-33ml/m2. 7. The right atrial size is normal. 8. The aortic valve is trileaflet, and appears structurally normal. No aortic stenosis or regurgitati on. 9. [id number] mitral regurgitation is present. 10. Mild tricuspid regurgitation present. 11. There is no evidence of pulmonary hypertension. 12. The right ventricular systolic pressure, as measured by Doppler, is 31.53mmHg. 13. Trace/mild (physiologic) pulmonic regurgitation. 14. The aortic root size is normal. 15. There is no pericardial effusion. CONDUCTOR/ENGINEER: Bev Lagunas RDCS
[2018-06-04] MEDS: MELOXICAM 7.5 MG TAB PO SCH (13:46)
[2018-06-04] MEDS: CALCIUM CARB-VIT D 500MG-200UN 1 EACH TAB PO SCH (13:49)
[2018-06-04] MEDS: PANTOPRAZOLE 40 MG TABLET PO SCH (13:49)
[2018-06-04] MEDS: MULTIVITAMINS, THERA 1 EACH TAB PO SCH (13:49)
[2018-06-04] MEDS: ASPIRIN 81 MG PO SCH (13:50)
[2018-06-04] MEDS: ATORVASTATIN 20 MG TAB PO SCH (13:50)
--- NOTE | 2018-06-04 14:00 | ECHOS ---
STRESS ECHOCARDIOGRAM INDICATIONS: Chest pain. BASELINE HEART RATE: 66 BASELINE BLOOD PRESSURE: 125/50 MAXIMUM HEART RATE: 138 MAXIMUM BLOOD PRESSURE: 155/82 85% MPHR: 121 100% MPHR: 142 MAXIMUM STAGE REACHED: II TOTAL EXERCISE TIME: 8:03 CLINICAL INFORMATION: A dobutamine stress echocardiographic study was performed. Peak heart rate of 138 was achieved, maximum blood pressure 155/82 mmHg was noted. Resting EKG shows normal sinus rhythm with normal CA interval and QRS duration and normal ST-T waves. No ST-segment depression suggestive of ischemia is noted. The baseline echocardiographic images reveals normal left ventricular chamber size with normal left ventricular systolic function. In the immediate post exercise period there is normal increase in the wall thickness and contractility was noted. Occasional PVCs were noted. FINAL IMPRESSION: 1. This dobutamine stress echocardiographic study is negative for stress-induced ischemia. 2. EKG portion of the stress test is not suggestive of ischemia. 3. Occasional premature ventricular contractions were noted. MMODL / IJN: [id number] /
--- NOTE | 2018-06-04 14:59 | P.PN ---
Subjective This is a pleasant 77-year-old female transferred from [facility] for chest discomfort radiating to the left shoulder and back. She underwent dobutamine stress echocardiogram today which was negative for stress- induced cardiac ischemia. Echocardiogram obtained reveals preserved left ventricular systolic function with ejection fraction 55-60%, mildly dilated left atrium, mild to moderate mitral regurgitation and mild tricuspid regurgitation. She continues to complain of intermittent mid sternal discomfort more in the epigastric region. Blood pressure 153/87 heart rate 73 afebrile maintaining oxygen saturation on room air. Laboratory data reviewed, WBC 4.2, hemoglobin 13.2, platelets 168, sodium 142, potassium 4.1, creatinine 0.6. GENERAL: Well-appearing, well-nourished and in no acute distress. NECK: Supple without JVD or thyromegaly. LUNGS: Breath sounds clear to auscultation bilaterally. Respiration equal and unlabored. No wheezes, rales or rhonchi. HEART: Regular rate and rhythm with systolic ejection murmur at the left sternal border, rubs or gallops. S1 and S2 heard. EXTREMITIES: Normal range of motion, no edema. No clubbing or cyanosis. Peripheral pulses intact. ASSESSMENT Chest pain, atypical. An acute coronary event has been ruled out. Negative to be dobutamine stress echocardiogram. Dyslipidemia Gastroesophageal reflux disease PLAN Stress test was normal, patient is stable from a cardiac perspective. Obtain ultrasound of the abdomen to further evaluate her epigastric discomfort. Request consultation by GI services. Follow-up with Dr. Ritchie upon discharge. Nurse Practitioner note has been reviewed, I agree with a documented findings and plan of care. Patient was seen and examined. Objective - Vital Signs Vital signs: Vital Signs Temp 97.3 F L 06/04/18 12:00 Pulse 73 06/04/18 12:00 Resp 18 06/04/18 12:00 BP 153/87 06/04/18 12:00 Pulse Ox 99 06/04/18 12:00 Intake & Output 06/03/18 06/04/18 06/04/18 18:59 06:59 18:59 Intake Total 84.444 Balance 84.444 Intake: Intake, IV Titration 84.444 Amount Heparin Sod,Pork in 0.45% 84.444 NaCl 25,000 unit In 0.45 % NaCl 1 250ml.bag @ 11 UNITS/KG/HR 9.57 mls/hr IV .Q24H [facility] Rx#: [id number] Other: Voiding Method Toilet Toilet Toilet # Voids 1 2 - Labs CBC & Chem 7: 06/04/18 05:49 06/04/18 05:49 Labs: Abnormal Lab Results - Last 24 Hours (Table) 06/03/18 06/03/18 06/04/18 Range/Units 15:50 23:15 05:49 D-Dimer 0.68 H (<0.60) mg/L FEU Chloride 108 H (98-107) mmol/L Glucose 116 H (74-99) mg/dL Total Protein 6.0 L (6.3-8.2) g/dL Albumin 3.4 L (3.5-5.0) g/dL Urine Blood Small H (Negative) Ur Leukocyte Esterase Large H (Negative) Urine WBC 16 H (0-5) /hpf Urine Mucus Rare H (None) /hpf
--- NOTE | 2018-06-04 16:02 | US ---
EXAMINATION TYPE: US abdomen complete DATE OF EXAM: 06/04/2018 COMPARISON: None CLINICAL HISTORY: 77-year-old female with a chest and epigastric pain TECHNIQUE: Multiple sonographic images of the abdomen are obtained. FINDINGS: EXAM MEASUREMENTS: Liver Length: 16.1 cm Gallbladder Wall: 0.1 cm CBD: 0.4 cm Spleen: 11.3 cm Right Kidney: 9.1 x 4.3 x 4.1 cm Left Kidney: 10.3 x 4.7 x 5.9 cm Sulfur Burner notes:Difficult and limited study due to patient body habitus Pancreas: visualized portions wnl, pancreatic tail limited by overlying midline bowel gas Liver: multiple cysts with largest in right lobe measuring 2.7 x 2.9 x 2.8cm . Somewhat hypoechoic in appearance which may be undetectable basis. Gallbladder: wnl Evidence for sonographic Cardona's sign: no CBD: wnl Spleen: wnl Right Kidney: multiple parapelvic cysts with largest measuring 2.3cm Left Kidney: multiple parapelvic cysts with largest measuring 3.0cm On the provided images, the multiple parapelvic cysts makes it difficult to determine if there is any hydronephrosis by ultrasound. During real-time scanning, the senior devops engineer does not appreciate hydrone phrosis. Upper IVC: wnl Abd Aorta: wnl IMPRESSION: 1. Hypoechoic appearance to the liver may be a technical basis. This can also be seen with hepatitis. Correlate with LFTs. 2. Multiple bilateral renal parapelvic cysts. Cysts also noted within the liver measuring up to 2.9 c m.
--- NOTE | 2018-06-04 17:35 | P.CNNES ---
History of Present Illness Consult date: 06/03/18 History of Present Illness: The patient is a 69-year-old right-handed white female with dementia who had an episode yesterday of jaw pain and chest pain up her back pain. Her daughter and son-in-law are at the bedside. They report that the patient had complained of these things. Her back and chest discomfort has reduced today. She was sent to [facility] and she had an elevated d-dimer . Patient has no history of seizures. In the emergency room at [facility] she had an episode where she was breathing heavily and her eyes rolled up and she kept squeezing her daughter's hand. There is no loss of consciousness or loss of awareness. The patient lives with her at home. She has been having worsening memory problems over the last few years. Review of Systems ROS unobtainable: due to mental status Past Medical History Past Medical History: Cancer, Chest Pain / Angina, Dementia, GERD/Reflux, Hyperlipidemia, Osteoarthritis (OA) Additional Past Medical History / Comment(s): hx. uterine cancer History of Any Multi-Drug Resistant Organisms: None Reported Past Surgical History: Hysterectomy, Joint Replacement, Orthopedic Surgery Additional Past Surgical History / Comment(s): left and right knee replaced, cataract surg., bunion surg. Past Anesthesia/Blood Transfusion Reactions: No Reported Reaction Past Psychological History: Anxiety Smoking Status: Never smoker Past Alcohol Use History: None Reported Past Drug Use History: None Reported - Past Family History Mother Family Medical History: Cancer Additional Family Medical History / Comment(s): COLON CA Brother(s) Family Medical History: Cancer Additional Family Medical History / Comment(s): PANCREATIC CANCER Father Family Medical History: Cancer Additional Family Medical History / Comment(s): brain cancer Medications and Allergies Home Medications Medication Instructions Recorded Confirmed Type Donepezil [Aricept] 10 mg PO HS 03/01/14 06/02/18 History Multivitamins, Thera [Multivitamin 1 tab PO DAILY 03/01/14 06/02/18 History (formulary)] Omeprazole [PriLOSEC] 20 mg PO AC-BRKFST 03/01/14 06/02/18 History Simvastatin [Zocor] 40 mg PO HS 03/01/14 06/03/18 History Aspirin [Adult Low Dose Aspirin EC] 81 mg PO BID 08/19/17 06/02/18 History Nitroglycerin Sl Tabs [Nitrostat] 0.4 mg SUBLINGUAL Q5M PRN 08/19/17 06/02/18 History Atenolol [Tenormin] 25 mg PO HS 08/21/17 06/02/18 History Glucosamine Sulfate 500 mg PO DAILY 08/21/17 06/02/18 History Meloxicam [Mobic] 7.5 mg PO BID 08/21/17 06/02/18 History Calcium Carbonate/Vitamin D3 1 tab PO DAILY 08/23/17 06/02/18 History [Calcium 600-Vit D3 200 Tablet] Allergies Allergy/AdvReac Type Severity Reaction Status Date / Time No Known Allergies Allergy Verified 06/02/18 23:26 Physical Examination - Vital Signs Vital Signs: Vital Signs Temp Pulse Pulse Resp BP BP Pulse Ox 06/03/18 16:00 97.7 F 81 16 130/84 92 L 06/03/18 12:00 97.8 F 74 18 135/83 92 L 06/03/18 08:00 97.6 F 66 16 116/73 95 06/03/18 03:07 97.6 F 66 18 103/67 2 L 06/03/18 02:57 18 06/03/18 01:17 18 06/02/18 23:42 86 18 126/75 96 06/02/18 22:58 98.6 F 16 Intake and Output 06/03/18 06/03/18 06/03/18 06:59 14:59 22:59 Intake Total 72.254 Balance 72.254 Intake: Intake, IV Titration 72.254 Amount Heparin Sod,Pork in 0.45% 72.254 NaCl 25,000 unit In 0.45 % NaCl 1 250ml.bag @ 11 UNITS/KG/HR 9.57 mls/hr IV .Q24H [facility] Rx#: [id number] Other: Voiding Method Toilet Toilet Toilet # Voids 2 - Constitutional General appearance: average body habitus - EENT EENT: PERRL - Respiratory Respiratory: lungs clear - Cardiovascular Cardiovascular: regular rate, normal S1, normal S2 - Neurologic Neurologic examination: Mental status: She was awake alert and oriented to the date ,she knew the hospital ,she knew that she had 5 children s,he was able to spell world forward and backward, she was able to do simple calculations ,there was no a aphasia or dysarthria. X Cranial nerve examination: Cranial nerves II through XII grossly intact Motor examination: 5 out of 5 throughout Sensory examination: Intact Coordination: [id number] intact next Deep tendon reflexes: Intact in upper extremities next Gait: Not tested Results - Laboratory Findings Abnormal Lab Findings: Abnormal Labs 06/03/18 06/03/18 10:24 15:50 APTT 33.7 H D-Dimer 0.68 H Assessment and Plan (1) Chest pain Current Visit: Yes Status: Acute Code(s): R07.9 - CHEST PAIN, UNSPECIFIED SNOMED Code(s): 28990884 (2) Dementia Current Visit: Yes Status: Acute Code(s): F03.90 - UNSPECIFIED DEMENTIA WITHOUT BEHAVIORAL DISTURBANCE SNOMED Code(s): 59180079 (3) Confusion Current Visit: Yes Status: Acute Code(s): R41.0 - DISORIENTATION, UNSPECIFIED SNOMED Code(s): 298362495 Plan: The patient is a 77-year-old woman who presents to the hospital with chest pain radiating to the neck and jaw and shoulder blades. She has a history of dementia. He reports that she had an episode of rapid respiration for associated with shortness of breath and during this episode her eyes rolled up and she clenched her daughter's hand. The patient to have no seizure-like activity and there was no loss of awareness or consciousness. She Squeezing in opening and squeezing her daughter's hand and appeared frightened. Her main complaint was shortness of breath and she is admitted to the hospital for possible chest pain and TIA. He is scheduled to have a carotid ultrasound and echocardiogram. Recommend further evaluation with MRI of the brain if possible given that she has 2 knee replacements. Also recommend EEG
--- NOTE | 2018-06-04 19:45 | EEG ---
ELECTROENCEPHALOGRAM REPORT DATE OF EE06/04/2018. ELECTROENCEPHALOGRAPHIC EXAMINATION REPORT: INDICATION FOR EXAMINATION: This patient is a 77-year-old female being evaluated for chest pain and difficulty with speech. Patient with questionable TIA symptoms related to aphasia. Entire episode lasted 4 to 5 minutes in duration. Patient has history of dementia. AGE: 77. EEG FINDINGS: A routine 21-channel awake digital EEG recording was accomplished utilizing the 10-20 international system with bipolar and referential montages. The background activity in the most alert resting state consists of a low to medium amplitude, fairly well developed and well sustained 6-7 Hz activity over the posterior head regions. This posterior rhythm attenuates to eye opening. There is a small amount of low amplitude 18-20 Hz beta activity seen maximally over the anterior head regions. Muscle and movement artifact was observed on a few occasions during the tracing. Hyperventilation was not performed. Photic stimulation at flash frequencies of 2-30 Hz produced a good symmetrical occipital driving response. No epileptiform discharges were seen. IMPRESSION: This EEG is mildly abnormal in diffuse fashion due to slight slowing of the EEG background. The EEG failed to reveal any focal, lateralized, or epileptiform abnormalities. Clinical correlation is recommended. MMODL / IJN: [id number] /
[2018-06-04] MEDS: ATENOLOL 25 MG TAB PO SCH (20:18)
[2018-06-04] MEDS: DONEPEZIL 10 MG TAB PO SCH (20:19)
--- NOTE | 2018-06-04 21:01 | P.PN ---
Subjective Progress Note Date: 06/04/18 The patient is a 77-year-old woman admitted to the hospital with chest pain. Patient is being treated for UTI. Patient is doing better in terms of her mental status today. Her daughter was at her bedside agrees that the patient is thinking more clearly today. The patient has a history of dementia. She has been taking Aricept. She has had a CAT scan of the brain which was unremarkable. She is awaiting MRI of the brain. Objective - Vital Signs Vital signs: Vital Signs Temp 98.3 F 06/04/18 19:47 Pulse 84 06/04/18 19:47 Resp 18 06/04/18 19:47 BP 138/91 06/04/18 19:47 Pulse Ox 92 L 06/04/18 19:47 Intake & Output 06/04/18 06/04/18 06/05/18 06:59 18:59 06:59 Intake Total 118 Balance 118 Intake: Oral 118 Other: Voiding Method Toilet Toilet # Voids 1 2 - Constitutional General appearance: Present: average body habitus - EENT Eyes: Present: PERRLA ENT: Present: hearing grossly normal - Neurologic Neurologic Comment(s): Neurologic examination: Mental status: She was awake alert oriented 3 her speech was fluent. There was no a aphasia or dysarthria next Cranial nerves examination: Cranial nerves II through XII grossly intact next Motor examination: No focal weakness detected Gait: Not tested - Labs CBC & Chem 7: 06/04/18 05:49 06/04/18 05:49 Labs: Abnormal Lab Results - Last 24 Hours (Table) 06/03/18 06/04/18 Range/Units 23:15 05:49 Chloride 108 H (98-107) mmol/L Glucose 116 H (74-99) mg/dL Total Protein 6.0 L (6.3-8.2) g/dL Albumin 3.4 L (3.5-5.0) g/dL Urine Blood Small H (Negative) Ur Leukocyte Esterase Large H (Negative) Urine WBC 16 H (0-5) /hpf Urine Mucus Rare H (None) /hpf Assessment and Plan (1) Chest pain Current Visit: Yes Status: Acute Code(s): R07.9 - CHEST PAIN, UNSPECIFIED SNOMED Code(s): 32274297 (2) Dementia Current Visit: Yes Status: Acute Code(s): F03.90 - UNSPECIFIED DEMENTIA WITHOUT BEHAVIORAL DISTURBANCE SNOMED Code(s): 08132722 (3) Confusion Current Visit: Yes Status: Acute Code(s): R41.0 - DISORIENTATION, UNSPECIFIED SNOMED Code(s): 632857920 Plan: The patient is a 77-year-old woman who presents to the hospital with chest pain radiating to the neck and jaw and shoulder blades. She has a history of dementia. She had an EEG which showed mild slowing without any focal abnormality. He is awaiting MRI scan of the brain. Her confusion is likely secondary to urosepsis which is improving.
--- NOTE | 2018-06-04 23:27 | PN ---
PROGRESS NOTE DATE OF SERVICE: 06/04/2018 This 77-year-old woman who was admitted with chest pain and difficulty speaking is being closely monitored at this time. CT scan showed no acute abnormality. MRI has been recommended by Neurology. A dobutamine stress echo was done. Multiple renal cysts were noted. A dobutamine stress echo done by Cardiology showed no evidence of any stress-induced ischemia. Occasional PVCs were noted. A carotid Doppler was done which showed no hemodynamically significant stenosis. No chest pain. No palpitations. No fever. PHYSICAL EXAMINATION: Alert and oriented x3. Pulse is 84, blood pressure 138/91, respiration 18, temperature 98.3, pulse ox 92% on room air. HEENT: Conjunctivae normal. NECK: No jugular venous distention. CARDIOVASCULAR SYSTEM: S1, S2 muffled. RESPIRATORY SYSTEM: Breath sounds diminished at the bases. No rhonchi. No crackles. ABDOMEN: Soft, non-tender. LEGS: No edema. No swelling. NERVOUS SYSTEM: No focal deficit. LABS: CBC within normal limits. Sodium 142, potassium 4.1. Otherwise, UA noted; UTI. ASSESSMENT: 1. Chest pain, possibly musculoskeletal, possibly gastroesophageal reflux disease. Negative stress echo. 2. Possible transient ischemic attack. 3. History of dementia. 4. Gastroesophageal reflux disease. 5. Hyperlipidemia. 6. History of degenerative joint disease. 7. History of uterine cancer. 8. History of anxiety. 9. Urinary tract infection. RECOMMENDATIONS AND DISCUSSION: In this 77-year-old woman who presented with multiple medical problems, at this time we will monitor the patient closely, continue the current management, continue with symptomatic treatment. I would recommend a course of antibiotic. Will follow closely with Neurology. Continue with antiplatelet agents. Guarded prognosis because of multiple complex medical issues. Further recommendations to follow. MMODL / IJN: [id number] /
[2018-06-05] MEDS: MELOXICAM 7.5 MG TAB PO SCH (08:58)
[2018-06-05] MEDS: PANTOPRAZOLE 40 MG TABLET PO SCH (08:59)
[2018-06-05] MEDS: ASPIRIN 81 MG PO SCH (08:59)
[2018-06-05] MEDS: CALCIUM CARB-VIT D 500MG-200UN 1 EACH TAB PO SCH (08:59)
[2018-06-05 09:34] VITALS: RESP 16
[2018-06-05 12:20] VITALS: BP 132/90; PULSE 75; TEMP 97.7
[2018-06-05] MEDS: ATORVASTATIN 20 MG TAB PO SCH (12:57)
[2018-06-05] MEDS: MULTIVITAMINS, THERA 1 EACH TAB PO SCH (12:57)
--- NOTE | 2018-06-05 14:28 | MR ---
EXAMINATION TYPE: MR brain wo con DATE OF EXAM: 06/05/2018 COMPARISON: CT brain dated 06/03/2018 HISTORY: altered mental status, syncope TECHNIQUE: Multiplanar, multisequence images of the brain and brainstem is performed without intravenous contras t. FINDINGS: Diffusion weighted images demonstrate no evidence of a recent infarct or other diffusion ab normality. There is moderate burden nonspecific white matter change demonstrated as T2/FLAIR hyperin tense foci throughout the periventricular and subcortical white matter. There are also foci infratent orially within the dionne. There is no extra-axial fluid collection or significant white matter signal abnormality. The ventricular system and cisternal spaces as well as the cerebellar folia are symmetr ically prominent compatible with age-related volume loss. There is undulation of the optic nerves and slight prominence of the subarachnoid spaces surrounding the optic nerves. Midline structures demonstrate normal morphology. The craniocervical junction appears within normal limits. The dural venous sinuses appear patent. The visualized sinuses displayed mild ethmoidal mucos al thickening but are otherwise well aerated as are the mastoid air cells. There is leftward nasal se ptal deviation noted. IMPRESSION: 1. No acute territorial infarct, midline shift or mass effect. 2. Moderate burden supratentorial and mild burden infratentorial nonspecific white matter change, mos t commonly on the basis of chronic microangiopathy. 3. Age-related cerebral and cerebellar volume loss. 4. Undulation of the optic nerves and prominence of the subarachnoid space surrounding the optic nerv es are seen but are nonspecific findings. These findings can be seen in increased intracranial pressu re. Correlate with ophthalmologic exam to evaluate for papilledema. No additional MRI findings of inc reased intracranial pressure are seen.
--- NOTE | 2018-06-05 17:31 | DS ---
DISCHARGE SUMMARY DATE OF SERVICE: 06/05/2018 FINAL DIAGNOSES: 1. Chest pain, possibly musculoskeletal, possibly gastroesophageal reflux disease, with negative stress echo. 2. Possible transient ischemic attack. 3. History of dementia. 4. Gastroesophageal reflux disease. 5. Hyperlipidemia. 6. History of degenerative joint disease. 7. History of uterine cancer. 8. History of anxiety. 9. Urinary tract infection. DISCHARGE DISPOSITION: The patient will be discharged in stable condition with guarded prognosis. HISTORY OF PRESENT ILLNESS: This 77-year-old woman with a past medical history of multiple medical problems was admitted with chest pain as well as possible TIA. Patient was treated in conjunction with Cardiology and Neurology. Please refer to cardiology and neurology notes for further information. other evaluation negative at this time. Brain MRI is also negative. The patient will be discharged in stable condition with guarded prognosis with the following advice and medications: 1. Diet is cardiac. 2. Activity limited until followup. 3. Follow up with Dr. Hook in 2-3 days. 4. Follow up with Dr. Moreno as recommended. 5. Follow up with Gastroenterology as recommended regarding the ultrasound of the liver evaluation. 6. Aspirin 81 mg p.o. b.i.d. 7. Tenormin 25 mg at bedtime. 8. Calcium with vitamin D one p.o. daily. 9. Aricept 10 mg at bedtime. 10.Glucosamine 500 mg p.o. daily. 11.Mobic 7.5 p.o. b.i.d. 12.Multivitamins 1 p.o. daily. 13.Nitrostat p.r.n. 14.Prilosec 20 mg before breakfast. 15.Zocor 40 mg at bedtime. 16.Ceftin 500 mg p.o. b.i.d. for 5 days. Ultrasound of the abdomen showed hyperechoic appearance in the liver, maybe a technical basis; can also be seen with hepatitis; and also multiple bilateral parapelvic cysts. The LFTs, AST and ALT have been normal. Recommend close followup with Dr. Hook in the outpatient setting. MMODL / IJN: [id number] / MTDD
== END 2018-06-05 17:27 | disposition home or self-care (01) ==
LOC: EC 22:52 → 1SOBS 06-03 01:01
PROVIDERS: ADMIT Internal Medicine; ATTEND Internal Medicine
DX: R07.89 Other chest pain (principal); N39.0 Urinary tract infection, site not specified; R47.9 Unspecified speech disturbances; R06.02 Shortness of breath; R79.89 Other specified abnormal findings of blood chemistry; F03.90 Unspecified dementia, unspecified severity, without behavioral disturbance, psychotic disturbance, mood disturbance, and anxiety; K21.9 Gastro-esophageal reflux disease without esophagitis; K76.89 Other specified diseases of liver; I08.1 Rheumatic disorders of both mitral and tricuspid valves; N28.1 Cyst of kidney, acquired; I49.3 Ventricular premature depolarization; R68.84 Jaw pain; M54.9 Dorsalgia, unspecified; E78.5 Hyperlipidemia, unspecified; M19.90 Unspecified osteoarthritis, unspecified site; F41.9 Anxiety disorder, unspecified; R94.01 Abnormal electroencephalogram [EEG]; Z79.1 Long term (current) use of non-steroidal anti-inflammatories (NSAID); Z79.899 Other long term (current) drug therapy; Z79.82 Long term (current) use of aspirin; Z85.42 Personal history of malignant neoplasm of other parts of uterus; Z90.710 Acquired absence of both cervix and uterus; Z96.653 Presence of artificial knee joint, bilateral; Z87.81 Personal history of (healed) traumatic fracture; Z98.49 Cataract extraction status, unspecified eye; Z80.0 Family history of malignant neoplasm of digestive organs; Z80.8 Family history of malignant neoplasm of other organs or systems
CPT/HCPCS: 96365; 96366 ×2; 96367; 99285; 36415; 94760; 95816; 93005; 93306; 93351; 85379; 80061; 80053; 84443; 82550; 82553; 84484 ×2; 85025; 85730; 81001; 71045; 76700; 93880; 70450; 70551; G0378 ×3; J1250; J0696 ×2; J1644

== ENCOUNTER → 2020-11-08 | Outpatient (CLI) | payer MEDICARE, BC ==
--- NOTE | 2020-11-08 15:48 | XR ---
EXAMINATION TYPE: XR Hip Complete RT DATE OF EXAM: 11/08/2020 COMPARISON: None HISTORY: Increasing chronic pain TECHNIQUE: 2 view right hip FINDINGS: Femoral head articulates with the acetabulum. Joint spaces are narrowed. No acute fractures are evident. Femoral head spurring is present. IMPRESSION: 1. Moderate degenerative changes right hip
== END | disposition home or self-care (01) ==
LOC: RADXRYALE 10:41
PROVIDERS: ATTEND Internal Medicine
DX: M16.11 Unilateral primary osteoarthritis, right hip (principal)
CPT/HCPCS: 73502

== ENCOUNTER → 2022-04-03 | Outpatient (CLI) | payer MEDICARE, BC ==
--- NOTE | 2022-04-03 16:28 | US ---
EXAMINATION TYPE: US pelvic limited DATE OF EXAM: 04/03/2022 COMPARISON: CT 2016 CLINICAL HISTORY: R31.9 hematuria. hysterectomy ?unknown if partial or complete. gross hematuria TECHNIQUE: Transabdominal (TA). Date of LMP: unknown EXAM MEASUREMENTS: Uterus: Surgically absent Endometrial Stripe: Surgically absent Right Ovary: unable to visualize Left Ovary: unable to visualize 1. Uterus: Surgically absent 2. Endometrium: Surgically absent 3. Right Ovary: Obscured by overlying bowel gas vs surgically absent 4. Left Ovary: Obscured by overlying bowel gas vs surgically absent 5. Bilateral Adnexa: wnl 6. Posterior cul-de-sac: wnl Uterus is completely surgically absent. No free fluid in pelvis. Neither ovary seen. No suspicious ad nexal masses noted. IMPRESSION: As above.
--- NOTE | 2022-04-03 16:31 | US ---
EXAMINATION TYPE: US kidneys/renal and bladder DATE OF EXAM: 04/03/2022 COMPARISON: NONE CLINICAL HISTORY: R31.9 hematuria. gross hematuria EXAM MEASUREMENTS: Right Kidney: 11.2 x 4.2 x 4.3 cm Left Kidney: 12.5 x 5.4 x 5.4 cm limitations due to large amount of overlying bowel content Right Kidney: multiple parapelvic cysts Left Kidney: multiple parapelvic cysts Bladder: not fully distended Bilateral Jets seen: no Urinary bladder poorly distended without intraluminal mass or wall thickening. Cortical thinning in b oth kidneys. Kidneys are within normal limits in size. There are scattered simple-appearing central t hin-walled parapelvic cysts bilaterally redemonstrated. Difficult to exclude new hydronephrosis on ba ckground parapelvic cysts. IMPRESSION: Source of hematuria not identified. Advise further investigation with CT urogram if sympt oms persist.
== END | disposition home or self-care (01) ==
LOC: RADUSWWP 15:30
PROVIDERS: ATTEND Internal Medicine
DX: R31.9 Hematuria, unspecified (principal)
CPT/HCPCS: 76770; 76857

== ENCOUNTER → 2022-04-11 | Outpatient (CLI) | payer MEDICARE, BC ==
[2022-04-11 12:41] LABS: African American GFR (CKD) >90 (>60 ml/min/1.73 sqM); Blood Urea Nitrogen 19 mg/dL (7-17); Non-African American GFR(CKD) 80 (>60 ml/min/1.73 sqM)
--- NOTE | 2022-04-11 15:04 | CT ---
EXAMINATION TYPE: CT abdomen pelvis w con DATE OF EXAM: 04/11/2022 COMPARISON: 09/22/2015 HISTORY: Vaginal bleeding. CT DLP: 1592 mGycm CONTRAST: CT scan of the abdomen and pelvis is performed with Oral Contrast and with IV Contrast, patient injec bridget with 100ml mL of Isovue 300. FINDINGS: LUNG BASES-: No visible nodule. No infiltrate. Moderate fixed hiatal hernia. LIVER/GB: No calcified gallstones. Multiple hepatic cysts are noted measuring up to 2.9 cm the medi al segment left hepatic lobe. There is a peritoneal nodule identified adjacent to the right hepatic l obe which measures 2.0 x 1.7 cm. No additional nodules are present. Biliary tree is of normal caliber . PANCREAS: No inflammation. No distinct mass. SPLEEN: No splenic enlargement. No lesion seen. ADRENALS: No nodule. No thickening. KIDNEYS/BLADDER: No hydronephrosis. No nephrolithiasis. Parapelvic cysts are seen bilaterally. Urin christine bladder grossly unremarkable. BOWEL: Normal appendix. Normal bowel caliber. No inflammation. GENITAL ORGANS: There has been prior hysterectomy however adjacent to the vaginal cuff there is a 4. 0 x 4.0 cm soft tissue mass which was not present previously. This could reflect vaginal cuff mass ho wever mass of ovarian origin is difficult to exclude. No left ovarian masses present. LYMPH NODES: No greater than 1cm abdominal or pelvic lymph nodes are appreciated. AORTA: No significant abnormality. OSSEOUS STRUCTURES: No significant abnormality is seen. OTHER: No significant additional abnormality is seen. IMPRESSION: 1. There has been prior hysterectomy however adjacent to the vaginal cuff there is a 4.0 x 4.0 cm sof t tissue mass which was not present previously. This could reflect vaginal cuff mass however mass of ovarian origin is difficult to exclude. 2. There is a mass noted adjacent to the liver likely extracapsular. This was not seen previously and could reflect a metastatic lesion.
== END | disposition home or self-care (01) ==
LOC: RADCTMAIN 11:48
PROVIDERS: ATTEND Internal Medicine
DX: R31.9 Hematuria, unspecified (principal); R10.84 Generalized abdominal pain; Z90.710 Acquired absence of both cervix and uterus
CPT/HCPCS: 82565; 84520; 74177; 36415; Q9967

== ENCOUNTER → 2022-04-30 | Outpatient (CLI) | payer MEDICARE, BC ==
[2022-04-30 23:59] LABS: HCT 41.9 % (37.2-46.3); HGB 13.5 g/dL (12.0-15.0); MCH 31.5 pg (27.0-32.0); MCHC 32.2 g/dL (32.0-37.0); MCV 97.7 fL (80.0-97.0); Mean Platelet Volume 10.8 fL (9.5-12.2); NRBC Per 100 WBC 0 /100 WBCS (0.0-0.0); Platelet Count 215 X 10*3/uL (140-440); RBC 4.29 X 10*6/uL (4.10-5.20); RDW 13.1 % (11.5-14.5); WBC 5.81 X 10*3/uL (4.50-10.00)
== END | disposition home or self-care (01) ==
LOC: LABWHC1 14:28
PROVIDERS: ATTEND Radiology Radiation Oncology
DX: N95.0 Postmenopausal bleeding (principal)
CPT/HCPCS: 36415; 85027